=== PATIENT | male | born 1955 | race Hispanic/Latino ===

== ENCOUNTER 2023-01-11 06:05 | Observation (INO) | payer MEDICARE ==
[2023-01-04 14:26] VITALS: BP 139/83; PULSE 89; RESP 18; TEMP 97.8; O2SAT 96
[2023-01-04 15:40] LABS: BASOPHIL % 0.5 % (0.0-0.2); EOSINOPHIL # 0.3 10^3/uL (0.0-0.2); HEMATOCRIT(ML) 38.8 % (37.0-53.0); HEMOGLOBIN 11.9 g/dL (13.9-16.3); LYMPHOCYTES # 2.84 10^3/uL1 (1.0-4.8); LYMPHOCYTES % 32.6 % (24.0-44.0); MEAN CORP HGB 25.3 pg (26-34); MEAN CORP HGB CONCENTRATION 30.7 g/dL (33-36.5); MEAN CORP VOLUME 82.4 fL (78-100); MONOCYTES # 0.9 10^3/uL (0.3-0.8); MONOCYTES % 10.6 % (5.0-12.0); NEUTROPHIL # 4.7 10^3/uL (1.8-7.7); NEUTROPHILS % 53.2 % (41.0-85.0); PLATELET COUNT 328 10^3/uL (150-400); RED BLOOD CELL 4.71 10^6/uL (4.50-5.90); RED CELL DISTRIBUTION WIDTH 23.9 % (11.5-14.5); WHITE BLOOD CELL 8.7 10^3/uL (4.5-11.0)
[2023-01-04 15:44] LABS: BILIRUBIN,URINE NEGATIVE (NEGATIVE); LEUKOCYTE ESTERASE ,URINE NEGATIVE (NEGATIVE); NITRATE,URINE NEGATIVE (NEGATIVE); UROBILINOGEN,URINE 0.2 E.U./dL (0.2)
[2023-01-04 15:46] LABS: APPEARANCE,URINE CLEAR; UA COLOR YELLOW
[2023-01-04 15:48] LABS: +ADD MANUAL DIFF(NO CHRG) 0
[2023-01-04 16:02] LABS: ALBUMIN(ML) 3.5 g/dL (3.4-5.0); ALBUMIN/GLOBULIN RATIO 0.875; ANION GAP 13.7; CALCIUM 9.3 mg/dL (8.4-10.5); CARBON DIOXIDE 25.4 mmol/L (20.0-32); CREATININE SERUM 1.49 mg/dL (0.59-1.40); EST GFR, NON-AA 46.9 (>/=60); POTASSIUM 4.1 mmol/L (3.6-5.2)
[2023-01-04 16:06] LABS: ANISOCYTOSIS 1+ (NEGATIVE); POIKILOCYTOSIS 1+ (NEGATIVE)
[2023-01-11] VITALS (17 sets, daily range): BP systolic 96–141; BP diastolic 48–83; PULSE 62–91; RESP 16–19; TEMP 97–98.7; O2SAT 91–99
[~2023-01-11] VITALS: Ht 165.1 cm; Wt 89.4 kg
[~2023-01-11 06:05] MED LIST: ANCEF IV ONE; BACTROBAN OINTMENT TP ONE; ENAL-3 PO; FERR325T15 PO; METOCARBAMOL PO; NS 100ML 100 ML IV ONE; PIOG15TA26 PO; TRAM50TA PO; [UNRECOGNIZED DRUG - OTHER] PO; [UNRECOGNIZED DRUG - OTHER] PO
[2023-01-11] MEDS: LACTATED RINGERS 1,000 ML IV SCH ×2 (06:52→13:11)
[2023-01-11] MEDS ORDERED: CELEBREX PO STA (06:57)
[2023-01-11] MEDS ORDERED: OFIRMEV 1000 MG/100 ML IV SCH (07:00)
[2023-01-11] MEDS ORDERED: ULTRAM PO PRN ×3 (07:00→11:00)
[2023-01-11] MEDS ORDERED: NEURONTIN PO SCH (07:00)
[2023-01-11] MEDS ORDERED: DECADRON IV SCH (07:00)
[2023-01-11] MEDS ORDERED: NEURONTIN ONE (07:03)
[2023-01-11] MEDS ORDERED: DECADRON ONE (07:03)
[2023-01-11] MEDS ORDERED: SODIUM CHLORIDE IRR BOTTLE IR ONE (07:19)
[2023-01-11] MEDS ORDERED: NS 3000ML IRR IR ONE (07:19)
[2023-01-11] MEDS ORDERED: WATER ONE (07:20)
[2023-01-11] MEDS ORDERED: NS 250ML 250 ML ONE (07:21)
[2023-01-11] MEDS ORDERED: ZYNRELEF 400-12 MG/14 ML VIAL IL ONE (07:21)
[2023-01-11] MEDS ORDERED: EXPAREL 266 MG/20 ML VIAL IJ ONE (07:40)
[2023-01-11] MEDS ORDERED: MARCAINE 0.5% ONE (07:40)
[2023-01-11] MEDS ORDERED: VERSED ONE (07:40)
[2023-01-11] MEDS ORDERED: DIPRIVAN 100 ML IV ONE (08:01)
[2023-01-11] MEDS ORDERED: ZOFRAN ONE (08:01)
[2023-01-11] MEDS ORDERED: TRANEXAMIC 1,000 MG/100ML-NACL 200 ML IV ONE (08:02)
[2023-01-11] MEDS: ACTOS PO SCH (09:30)
[2023-01-11] MEDS ORDERED: LACTATED RINGERS 1,000 ML IV SCH (11:00)
[2023-01-11] MEDS ORDERED: CEPACOL SORE THROAT LOZENGE MM PRN (11:00)
[2023-01-11] MEDS ORDERED: TORADOL IV PRN (11:00)
[2023-01-11] MEDS: TYLENOL PO SCH ×3 (12:00→23:34)
[2023-01-11] MEDS: ANCEF 2 GM/D5W 50ML IV SCH ×2 (13:10→21:23)
[2023-01-11 18:18] LABS: HEMATOCRIT(ML) 37.1 % (37.0-53.0); HEMOGLOBIN 11.5 g/dL (13.9-16.3); MEAN CORP HGB 25.7 pg (26-34); MEAN CORP VOLUME 82.8 fL (78-100); PLATELET COUNT 275 10^3/uL (150-400); RED BLOOD CELL 4.48 10^6/uL (4.50-5.90); RED CELL DISTRIBUTION WIDTH 22.3 % (11.5-14.5); WHITE BLOOD CELL 11.9 10^3/uL (4.5-11.0)
[2023-01-11 19:24] LABS: ANISOCYTOSIS 1+ (NEGATIVE); HYPOCHROMIA 1+ (NEGATIVE); MICROCYTOSIS 1+ (NEGATIVE)
[2023-01-11 19:25] LABS: OVALOCYTES 1+ (NEGATIVE)
[2023-01-11] MEDS: FERROUS SULFATE PO SCH (21:23)
[2023-01-12] VITALS (7 sets, daily range): BP systolic 111–122; BP diastolic 67–76; PULSE 64–81; RESP 16–19; TEMP 97.5–98.7; O2SAT 90–95
[2023-01-12] MEDS: LACTATED RINGERS 1,000 ML IV SCH ×2 (01:28→09:45)
[2023-01-12] MEDS: ANCEF 2 GM/D5W 50ML IV SCH (05:07)
[2023-01-12] MEDS: TYLENOL PO SCH ×4 (05:07→23:16)
[2023-01-12 06:59] LABS: HEMATOCRIT(ML) 32.8 % (37.0-53.0); HEMOGLOBIN 10.4 g/dL (13.9-16.3); MEAN CORP HGB 26.1 pg (26-34); MEAN CORP HGB CONCENTRATION 31.7 g/dL (33-36.5); MEAN CORP VOLUME 82.4 fL (78-100); PLATELET COUNT 274 10^3/uL (150-400); RED BLOOD CELL 3.98 10^6/uL (4.50-5.90); RED CELL DISTRIBUTION WIDTH 22.3 % (11.5-14.5); WHITE BLOOD CELL 18.2 10^3/uL (4.5-11.0)
[2023-01-12 08:49] LABS: ANION GAP 16.8; CALCIUM 8.7 mg/dL (8.4-10.5); CARBON DIOXIDE 21.6 mmol/L (20.0-32); CREATININE SERUM 1.57 mg/dL (0.59-1.40); EST GFR, NON-AA 44.2 (>/=60); POTASSIUM 4.4 mmol/L (3.6-5.2)
[2023-01-12] MEDS: XARELTO PO SCH (08:57)
[2023-01-12] MEDS: COLACE PO SCH (08:57)
[2023-01-12] MEDS: FERROUS SULFATE PO SCH ×2 (08:57→20:26)
[2023-01-12] MEDS: ZESTRIL PO SCH (08:57)
[2023-01-12] MEDS: ACTOS PO SCH (08:58)
[2023-01-12] MEDS ORDERED: D5W 1000ML 1,000 ML IV PRN (09:00)
[2023-01-12] MEDS ORDERED: DEXTROSE 50%-WATER SYRINGE IV PRN (09:00)
[2023-01-12 09:07] LABS: ANISOCYTOSIS 1+ (NEGATIVE)
[2023-01-12] MEDS: HUMALOG SQ SCH ×3 (12:23→20:27)
[2023-01-12] MEDS ORDERED: MORPHINE SULFATE IV PRN (13:00)
[2023-01-13] VITALS: BP 118/74; PULSE 72; RESP 18; TEMP 97.5; O2SAT 92
[2023-01-13 05:02] VITALS: BP 114/69; PULSE 70; RESP 18; TEMP 97.4; O2SAT 92
[2023-01-13] MEDS: TYLENOL PO SCH (05:15)
[2023-01-13 05:59] LABS: HEMATOCRIT(ML) 30.3 % (37.0-53.0); HEMOGLOBIN 9.4 g/dL (13.9-16.3); MEAN CORP HGB 25.8 pg (26-34); MEAN CORP VOLUME 83.2 fL (78-100); RED BLOOD CELL 3.64 10^6/uL (4.50-5.90); RED CELL DISTRIBUTION WIDTH 22.7 % (11.5-14.5); WHITE BLOOD CELL 9.9 10^3/uL (4.5-11.0)
[2023-01-13 06:17] LABS: ANION GAP 11.9; CALCIUM 8.5 mg/dL (8.4-10.5); CREATININE SERUM 1.39 mg/dL (0.59-1.40); EST GFR, NON-AA 50.8 (>/=60); POTASSIUM 3.9 mmol/L (3.6-5.2)
[2023-01-13 07:08] VITALS: BP 111/69; PULSE 68; RESP 17; TEMP 98; O2SAT 92
[2023-01-13] MEDS: HUMALOG SQ SCH (07:30)
[2023-01-13] MEDS: XARELTO PO SCH (09:22)
[2023-01-13] MEDS: COLACE PO SCH (09:22)
[2023-01-13] MEDS: ZESTRIL PO SCH (09:23)
[2023-01-13] MEDS: FERROUS SULFATE PO SCH (09:23)
[2023-01-13] MEDS: ACTOS PO SCH (09:24)
[2023-01-13 11:00] VITALS: BP 111/69; PULSE 69; RESP 17; TEMP 98; O2SAT 93
[2023-01-13 11:08] VITALS: PULSE 69; RESP 17; O2SAT 93
== END 2023-01-13 11:00 | disposition home or self-care (01) ==
LOC: SDC 06:05 → EDSTATUS 08:00 → EDBEDREQ 11:18 → MS 11:35 → INTOOBSV 11:35
PROVIDERS: ADMIT Orthopaedic Surgery; ATTEND Orthopaedic Surgery
DX: M17.12 Unilateral primary osteoarthritis, left knee (principal); D62 Acute posthemorrhagic anemia; G89.18 Other acute postprocedural pain; I12.9 Hypertensive chronic kidney disease with stage 1 through stage 4 chronic kidney disease, or unspecified chronic kidney disease; E11.22 Type 2 diabetes mellitus with diabetic chronic kidney disease; N18.9 Chronic kidney disease, unspecified; D63.1 Anemia in chronic kidney disease; Z87.891 Personal history of nicotine dependence; Z96.651 Presence of right artificial knee joint; Z79.899 Other long term (current) drug therapy
CPT/HCPCS: 80053; 85025; 87070; 36415 ×4; 81001; 93005; 27447; 64447; 96374; 96376 ×2; 73560; 85027 ×3; 82948 ×3; 97530 ×2; 97162; 97166; 97535; 80048 ×2; 97116; G0378 ×4; C9290; J7050; J7120 ×2; A4217 ×2; C1713 ×2; A4649; C1776; J0690 ×2; J0131; C9088; J8499; J1100; J2405; J2250; J3490; A9150 ×3; J1815